=== PATIENT | female | born 1965 ===

== ENCOUNTER 2025-09-10 05:01 | Emergency (ER) | payer SELFPAY ==
[2025-09-10 05:03] VITALS: BMI 28.3
[2025-09-10 05:06] VITALS: BP 174/102; PULSE 78; RESP 14; TEMP 37; O2SAT 99
--- NOTE | 2025-09-10 05:48 | PD.EDRME ---
Rapid Medical Screening Exam RME Arrival date/time: 09/10/25 05:01 Chief Complaint: General Adult/Misc Complain Vital signs: Vital Signs Temperature 98.6 F 09/10/25 05:06 Pulse Rate 78 09/10/25 05:06 Respiratory Rate 14 09/10/25 05:06 Blood Pressure 174/102 H 09/10/25 05:06 Pulse Oximetry (%) 99 09/10/25 05:06 Oxygen Delivery Method Room Air 09/10/25 05:06 RME Narrative: 60-year-old female brought in by law enforcement due to high blood pressure. The [facility] facility will not take her with her current blood pressure 208/154. Patient does have a history of hypertension. Patient has no specific complaints at this time. Exam: None Clinical Impression: None
[2025-09-10 05:50] VITALS: BP 193/139; PULSE 75; RESP 14; O2SAT 99
--- NOTE | 2025-09-10 06:01 | EKG_ITS ---
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
[2025-09-10 06:02] VITALS: BP 186/118; PULSE 84; RESP 18; TEMP 36.9; O2SAT 95
[2025-09-10 06:07] VITALS: BP 183/177; PULSE 77
[2025-09-10] MEDS: METOPROLOL TARTRATE 25 MG TABLET PO (06:07)
[2025-09-10 06:08] VITALS: BP 183/117; PULSE 75
--- NOTE | 2025-09-10 06:34 | EDNOTE_ITS ---
ED Medical Clearance RME/HPI General Chief complaint: General Adult/Misc Complain Stated complaint: ELEVATED BP Time Seen by Provider: 09/10/25 06:01 Arrival date/time: 09/10/25 05:01 RME / HPI RME / HPI Narrative: 60-year-old female brought in by law enforcement due to high blood pressure. The detention facility will not take her with her current blood pressure 208/154. Patient does have a history of hypertension. Patient has no specific complaints at this time. Exam: None Impression: None Related Information Allergies Allergy/AdvReac Type Severity Reaction Status Date / Time No Known Allergies Allergy Verified 09/10/25 05:27 Course Quality Measures none Orders Category Date Time Status EKG (ED ONLY) *Do not use* NOW Care 09/10/25 06:01 Completed EKG (ED Only) Stat Exams 09/10/25 06:01 Draft Labetalol IV [Trandate IV] Med 09/10/25 05:49 Discontinued 20 mg IVP X1 ONE Metoprolol Tartrate [Lopressor] Med 09/10/25 06:01 Discontinued 25 mg PO X1 ONE cloNIDine HCL [Catapres] Med 09/10/25 06:01 Discontinued 0.2 mg PO X1 ONE Vital Signs Vital signs: Vital Signs Temperature 98.6 F 09/10/25 05:06 Pulse Rate 78 09/10/25 05:06 Respiratory Rate 14 09/10/25 05:06 Blood Pressure 174/102 H 09/10/25 05:06 Pulse Oximetry (%) 99 09/10/25 05:06 Oxygen Delivery Method Room Air 09/10/25 05:06 Medical Clearance [facility] Narrative [facility] Narrative:: This section includes all my notes and documentations, including HPI, PE, and ED course. James Chavez MD HPI: 60-year-old female here for detention clearance due to high BP. No headache or dizziness. No chest pain. No other complaints. ROS: All negative except as documented in HPI. Physical Exam: General: Alert and oriented. No acute distress when remaining still. Eyes: Conjunctivae and lids clear. ENT: No nasal congestion. Neck: Supple. Heart: RRR. Lungs: No respiratory distress. Good air movement. No rhonchi, wheezing, ral es. Abdomen: Soft and nontender. Normal bowel sounds. No distension. No rebound or guarding. Back: No CVA tenderness. Skin: Warm and dry. Neuro: Alert and oriented X 3. I reviewed all diagnostic test results: My interpretation of the EKG is sinus rhythm with no acute ST?T changes. At this point, diagnoses include: High BP Treatment here included: Oral metoprolol 25 mg Oral clonidine 0.2 mg Significant improvement noted. Based on my best medical judgment, made decision to medically clear the patient for detention and no further evaluation or treatment indicated at this time. Patient understands and agrees to the discharge instructions customized and printed, see below. Discharge Instructions from Dr. Chavez printed for you: 1. After lowering your BP, you are medically cleared for detention. 2. When you are released, see a private doctor for recheck. Ask for help with BP to prevent future heart attacks and strokes. 3. Seek immediate medical care with any concerns. You can ask for medical attention anytime. James Chavez MD Patient data External records reviewed:: Other (specify) (Police report) Clinical information provided by:: patient and law enforcement Social determinants that could affect healthcare access:: other (specify) (Unknown) Patient has the following chronic illnesses:: Hypertension How is presenting disease/condition affected by chronic disease/condition?: e xacerbated by Evaluation data The following diagnostics were reviewed and interpreted by me:: EKG tracing(s) (My interpretation of the EKG is: Sinus rhythm (76 bpm) with nonspecific ST-T changes. James Chavez MD) Lab and/or radiology exams considered but not ordered:: None Interpretation Summary: Sinus rhythm with no acute ST?T changes. Medications / Prescriptions Medications or Prescriptions considered but not ordered:: None Medication administrations:: Medication Administration History Discontinued Medications Clonidine (Clonidine Hcl 0.1 Mg Tablet) 0.2 mg PO X1 ONE Stop: 09/10/25 06:02 Last Admin: 09/10/25 06:08 Dose: 0.2 mg Documented By: DT Labetalol HCl (Labetalol Inj 5 Mg/Ml Vial 20 Ml) 20 mg IVP X1 ONE Stop: 09/10/25 05:50 Last Admin: 09/10/25 06:08 Dose: Not Given Documented By: DT Non-Admin Reason: Cancelled by Provider Metoprolol Tartrate (Metoprolol Tartrate 25 Mg Tablet) 25 mg PO X1 ONE Stop: 09/10/25 06:02 Last Admin: 09/10/25 06:07 Dose: 25 mg Documented By: DT Oral clonidine and oral metoprolol Consultations Consultation(s) initiated? (list below): No Diagnosis Medical Clearance Differential Diagnosis: other (Hypertension) Most likely diagnosis given after review of the tests above:: Hypertension, resolved Admission Indicated Admission indicated?: not indicated Explain why admission is indicated or not indicated:: With significant improvement and no condition needing emergent intervention, there was no indication for admission. Admission Request Was there a request for admission?: No Disposition Plan Disposition Plan: Discharge Discharge Attestation Discharge Attestation: The patient and all family members were given an opportunity to ask questions and understood the discharge instructions. Discharge instructions specifically effects, indications for sooner follow up or return to the emergency department, and the expected course of current diagnosis. Patient condition: Stable Discharge Plan Plan Patient Disposition: [facility]dc/Court/Law Problem List Clinical Impression: Hypertension Patient/Caregiver Discharge Instructions Discharge Activity: activity as tolerated Education Materials: ED Hypertension, Established Additional Instructions: Discharge Instructions from Dr. Chavez printed for you: 1. After lowering your BP, you are medically cleared for detention. 2. When you are released, see a private doctor for recheck. Ask for help with BP to prevent future heart attacks and strokes. 3. Seek immediate medical care with any concerns. You can ask for medical attention anytime. Print Language: Yakut
[2025-09-10 06:52] VITALS: BP 163/87; PULSE 83; RESP 14; TEMP 37; O2SAT 99
== END 2025-09-10 06:55 ==
LOC: SERX 07:03
PROVIDERS: Emergency Provider Emergency Medicine
DX: I10 Essential (primary) hypertension (principal)
CPT/HCPCS: 93005; 99283; A9270